=== PATIENT | male | born 1955 | race Caucasian/White ===

== ENCOUNTER 2021-01-13 10:07 | Emergency (ER) | payer MEDICARE ==
[2021-01-13] MEDS ORDERED: Fluorescein Opthalmic Strip ONE (10:26)
[2021-01-13] MEDS ORDERED: Tetracaine 0.5% PF 4 ML BOT ONE (10:26)
[2021-01-13] MEDS ORDERED: traMADol HCl 50 MG TAB ONE (11:13)
[2021-01-13] MEDS ORDERED: Erythromycin Base 0.5% Ophth Oint 3.5 gm Tube ONE (11:13)
== END 2021-01-13 11:32 | disposition home or self-care (01) ==
LOC: MADERS 10:07
DX: H18.821 Corneal disorder due to contact lens, right eye (principal); E78.5 Hyperlipidemia, unspecified; E78.00 Pure hypercholesterolemia, unspecified; I10 Essential (primary) hypertension; Z87.891 Personal history of nicotine dependence; Z79.899 Other long term (current) drug therapy
CPT/HCPCS: 99283